=== PATIENT | female | born 1970 | race Caucasian/White ===

== ENCOUNTER 2021-07-12 05:14 | Day surgery (SDC) | payer OTHER, SELFPAY ==
[~2021-07-12] VITALS: Ht 170.2 cm; Wt 90.7 kg
[2021-07-12 07:21] LABS: BASOPHILS % (AUTO) 0.4 % (0.0-2.0); EOSINOPHILS # (AUTO) 0.1 K/uL (0-0.4); EOSINOPHILS % (AUTO) 0.7 % (0.0-4.0); HEMATOCRIT 41.9 % (36-48); HEMOGLOBIN 14.3 g/dL (12.0-16.0); LYMPHOCYTES % (AUTO) 24.7 % (20.5-51.1); MEAN CORPUSCULAR HEMOGLOBIN 29 pg (27-31); MEAN CORPUSCULAR HGB CONC 34 g/dL (33-37); MEAN CORPUSCULAR VOLUME 83.9 fL (80-94); MONOCYTES # (AUTO) 0.5 K/uL (0.8-1.0); NEUTROPHILS # (AUTO) 5.7 K/uL (1.8-7.7); NEUTROPHILS % (AUTO) 68.2 % (42.2-75.2); PLATELET COUNT (AUTO) 273 K/uL (140-450); RED CELL DISTRIBUTION WIDTH 14.1 % (11.6-13.7); WHITE BLOOD COUNT (AUTO) 8.3 K/uL (4.8-10.8)
[2021-07-12] MEDS ORDERED: diphenhydrAMINE 50 MG/ML VIAL IVP PRN (07:25)
[2021-07-12] MEDS ORDERED: LACTATED RINGERS 1,000 ML IV SCH (07:25)
[2021-07-12] MEDS ORDERED: HYDROmorphone 1 MG/ML AMP IVP PRN (07:25)
[2021-07-12] MEDS ORDERED: MEPERIDINE 25 MG/ML SYR IVP PRN (07:25)
[2021-07-12] MEDS ORDERED: ONDANSETRON 4 MG/2 ML VIAL IVP PRN (07:25)
[2021-07-12] MEDS ORDERED: MIDAZOLAM 2 MG/2 ML VIAL ONE (07:27)
[2021-07-12] MEDS ORDERED: PROPOFOL 200 MG/20 ML VIAL IV ONE (07:27)
[2021-07-12] MEDS ORDERED: fentaNYL citrate 0.05 MG/ML VIAL ONE (07:27)
[2021-07-12] MEDS ORDERED: BUPIVACAINE-MPF 0.25% 30 ML VIAL INJ ONE (07:37)
[2021-07-12] MEDS ORDERED: LIDOCAINE 1% 500 MG/50 ML VIAL ONE (07:37)
[2021-07-12 07:41] LABS: ANION GAP 11.3 (8-16); CARBON DIOXIDE 25.7 mmol/L (21-32); CREATININE 0.7 mg/dL (0.6-1.3)
[2021-07-12] MEDS ORDERED: SEVOFLURANE 250 ML BTL INH ONE (07:55)
[2021-07-12] MEDS ORDERED: ONDANSETRON 4 MG/2 ML VIAL ONE (07:55)
[2021-07-12] MEDS ORDERED: DEXAMETHASONE 4 MG/ML VIAL ONE (07:55)
[2021-07-12] MEDS ORDERED: MEPERIDINE 50 MG/ML SYR ONE (08:09)
[2021-07-12] MEDS ORDERED: NEOMYCIN/POLYMYXIN/BACITRACIN OIN 15 GM TUBE TP ONE (09:29)
[2021-07-12] MEDS ORDERED: KETOROLAC 30 MG/ML VIAL IM PRN (09:55)
[2021-07-12] MEDS ORDERED: bisacodyL 5 MG TABEC PO SCH (21:00)
== END 2021-07-12 12:50 | disposition home or self-care (01) ==
LOC: MDS 05:14 → MMU 05:17 → MDS 12:50
PROVIDERS: ATTEND Obstetrics & Gynecology
DX: N81.10 Cystocele, unspecified (principal); N39.46 Mixed incontinence; E66.9 Obesity, unspecified; Z68.31 Body mass index [BMI] 31.0-31.9, adult; Z80.3 Family history of malignant neoplasm of breast; Z79.899 Other long term (current) drug therapy; Z20.822 Contact with and (suspected) exposure to COVID-19
CPT/HCPCS: 36415; 57240; 57288; 80048; 81025; 84703; 85025; 86886; 86900; 86901; 87426; C1771; J0690; J1100; J2001; J2175; J2250; J2405; J2704; J3010; J7060; J7120; J3490